=== PATIENT | female | born 1975 | race Two or more races ===

== ENCOUNTER 2019-11-24 10:30 | Inpatient (IN) | payer OTHER ==
[~2019-11-24] VITALS: Ht 172.7 cm; Wt 90.7 kg
[2019-11-24] MEDS ORDERED: HYDROCHLOROTHIA25 MG PO (12:41)
[2019-11-24] MEDS ORDERED: COZAAR25 MG PO (12:41)
[2019-12-03] MEDS ORDERED: NEURONTIN600 MG PO (07:01)
[2019-12-03] MEDS ORDERED: SIMETHICONE125 M1 PO (07:01)
[2019-12-03] MEDS ORDERED: FAMOTIDINE20 MG PO (07:01)
[2019-12-03] MEDS ORDERED: IBUPROFEN800 MG PO (07:01)
[2019-12-03] MEDS ORDERED: POLY119PG PO (07:02)
== END 2019-12-03 11:30 | disposition home or self-care (01) | DRG 743 ==
LOC: EDSTATUS 10:30 → OB/GYN 12-01 05:18 → O/R 12-01 05:18 → SURH 12-01 07:00 → EDSTATUS 12-01 10:30 → CIR.AMB 12-01 10:30 → OB/GYN 12-01 15:55
PROVIDERS: ADMIT Obstetrics & Gynecology; ATTEND Obstetrics & Gynecology
PROC: 0UT90ZZ Resection of Uterus, Open Approach (ICD-10-PCS; principal; 2019-12-01 07:00)
DX: N84.0 Polyp of corpus uteri (principal); N93.9 Abnormal uterine and vaginal bleeding, unspecified; N72 Inflammatory disease of cervix uteri; N80.0 Endometriosis of uterus